=== PATIENT | female | born 1950 | race Caucasian/White ===

== ENCOUNTER 2021-05-13 08:08 | Emergency (ER) | payer OTHER, SELFPAY ==
--- NOTE | ~2021-05-13 | XR_ITS ---
EXAMINATION: XR chest 2V DATE: 05/13/2021 08:36 INDICATION: 3 days of cough TECHNIQUE: PA and lateral views of the chest were obtained. COMPARISON: Chest radiograph dated 06/23/2017 FINDINGS: Mild opacities at the lateral right lower lung base. Pericardial fat pads with adjacent curvilinear a telectasis/scarring in the right middle lobe or lingula best appreciated on the lateral projection wh ich also demonstrates a calcified nodule consistent with old granulomatous disease the posterior aspe ct of one of the lung bases. No pulmonary edema, pleural effusion or pneumothorax. The cardiomediasti nal silhouette is normal. Moderate thoracic spondylosis. IMPRESSION: 1. Mild opacities in the lateral right lower lung zone which could represent atelectasis or pneumonia . Reviewed, dictated and finalized at location A. [employer] IMPRESSION: 1. Mild opacities in the lateral right lower lung zone which could represent at electasis or pneumonia.
--- NOTE | 2021-05-13 08:17 | ED.URI ---
HPI - URI/Sore Throat General Chief Complaint: Upper Respiratory Infection Stated Complaint: congestion Time Seen by Provider: 05/13/21 08:17 Source: patient Mode of arrival: ambulatory Limitations: no limitations History of Present Illness HPI Narrative: Milagro Nair is a 70 yo female with a PMH of DM, HTN, high cholesterol, hypothyroid, COPD, who comes to who comes with a cough and clear mucus running on the back of her throat she says that she cannot sleep at night because of the coughing. No fever, no nausea vomiting diarrhea, her has treated for bacterial pneumonia for the last week is also here with increased congestion Related Data Home Medications Medication Instructions Recorded Confirmed albuterol sulfate INHALATION 05/13/21 05/13/21 atorvastatin 05/13/21 fluticasone propionate INTRANASAL 05/13/21 fluticasone propionate applic TOPICAL 05/13/21 furosemide 05/13/21 gabapentin 05/13/21 ibuprofen 05/13/21 levothyroxine 05/13/21 lisinopril-hydrochlorothiazide tablet 05/13/21 metformin mg PO 05/13/21 potassium chloride meq PO 05/13/21 Allergies Allergy/AdvReac Type Severity Reaction Status Date / Time Sulfa (Sulfonamide Allergy Unknown Unknown Verified 05/13/21 08:30 Antibiotics) Review of Systems Review of Systems: CONSTITUTIONAL: Denies fever, chills, sweats. EYES: Denies visual changes, redness, discharge. ENT:has rhinorrhea, has congestion, no sore throat, no otalgia. CARDIOVASCULAR: Denies chest pain, palpitations, edema. RESPIRATORY: Denies dyspnea, wheezing, deep cough GASTROINTESTINAL: Denies abdominal pain, nausea, vomiting, diarrhea. GENITOURINARY: Denies dysuria, hematuria, abnormal discharge SKIN: Denies rash or itching. NEUROLOGIC: Denies numbness, or focal weakness. PSYCHIATRIC: Denies anxiety or depression. [facility] Past Medical History Medical History COPD (chronic obstructive pulmonary disease) Diabetes High cholesterol HTN (hypertension) Hypothyroid Social History Social History (Updated 05/13/21 @ 08:30 by Isha Luque CNP) Smoking packs per day: 0.5 Smoking cigarettes per day: 10.0 Smoking status: Current every day smoker Alcohol intake: current Comments At time of signature, I agree with nursing past medical, surgical, social and family history. There is no relevant family history pertinent to the presenting complaint. Exam Narrative: GENERAL: This is a well-nourished, well-developed patient, in mild distress. HEAD: normocephalic, atraumatic. EYES: Sclera clear/white. Vision is grossly intact. EARS: External ears normal, auditory canals clear and without drainage, TMs normal without perforation. Hearing grossly intact. NOSE: External nose normal without nasal discharge, nares without redness, has rhinorrhea. THROAT: Mucous membranes moist, posterior pharynx erythematous with clear drainage NECK: Neck supple, non-tender CARDIOVASCULAR: Regular rate and rhythm without murmurs, gallops, or rubs. RESPIRATORY: Diminished to auscultation. Breath sounds equal bilaterally. No wheezes, rales, or rhonchi. Deep cough GASTROINTESTINAL: Abdomen soft, SKIN: warm, intact with no suspicious lesions or rash, good texture and turgor. NEURO: awake, alert, and oriented to person, place and time. There were no obvious focal neurologic abnormalities. Steady gait EXTREMITIES: Normal range of motion. BACK: Nontender without deformity Course Course Emergency Course: Patient here with deep cough and nasal congestion x3 days Chest x-ray mild opacities in the lateral right lung, marked cardiomediastinal silhouette, no pulmonary edema no pleural effusion or pneumothorax Started on prednisone, Tessalon Perles, zithromax Vital Signs Vital signs: Vital Signs Temperature 98.5 F 05/13/21 08:19 Pulse Rate 93 05/13/21 08:19 Respiratory Rate 18 05/13/21 08:19 Blood Pressure 129/97 H 05/13/21 08
[2021-05-13 08:19] VITALS: BP 129/97; PULSE 93; RESP 18; TEMP 36.9; O2SAT 97
[2021-05-13 08:32] VITALS: BP 129/97; PULSE 93; RESP 18; TEMP 36.9; O2SAT 97
== END 2021-05-13 10:05 | disposition home or self-care (01) ==
PROVIDERS: Emergency Provider Nurse Practitioner
DX: J18.9 Pneumonia, unspecified organism (principal); I10 Essential (primary) hypertension; E11.9 Type 2 diabetes mellitus without complications; E03.9 Hypothyroidism, unspecified; J44.9 Chronic obstructive pulmonary disease, unspecified; F17.210 Nicotine dependence, cigarettes, uncomplicated; Z79.84 Long term (current) use of oral hypoglycemic drugs
CPT/HCPCS: 71046; 99213; G0463

== ENCOUNTER 2024-04-27 17:35 | Emergency (ER) | payer OTHER, SELFPAY ==
[2024-04-27 17:53] VITALS: BP 93/60; PULSE 94; RESP 15; TEMP 36.7; O2SAT 94
--- NOTE | 2024-04-27 18:19 | ED.URI ---
HPI - URI/Sore Throat General Chief Complaint: Upper Respiratory Infection Stated Complaint: Cough/Sinus Time Seen by Provider: 04/27/24 18:19 Source: patient, RN notes reviewed and old records reviewed Mode of arrival: ambulatory Limitations: no limitations History of Present Illness HPI Narrative: 73-year-old female presents to the [facility] with cough congestion for 2 weeks. Denies fevers. Patient is currently a smoker. History of COPD. Had been using her albuterol inhaler twice daily. Related Data Home Medications Medication Instructions Recorded Confirmed albuterol sulfate 90 mcg/actuation inhalation 05/13/21 05/13/21 aerosol inhaler atorvastatin 10 mg tablet 05/13/21 fluticasone propionate 0.05 % applic topical 05/13/21 topical cream fluticasone propionate 50 intranasal 05/13/21 mcg/actuation nasal spray,suspension furosemide 20 mg tablet 05/13/21 gabapentin 300 mg capsule 05/13/21 ibuprofen 800 mg tablet 05/13/21 levothyroxine 75 mcg tablet 05/13/21 lisinopril 20 tablet 05/13/21 mg-hydrochlorothiazide 25 mg tablet metformin 500 mg tablet,extended mg PO 05/13/21 release 24 hr potassium chloride 10 mEq meq PO 05/13/21 tablet,extended release Allergies Allergy/AdvReac Type Severity Reaction Status Date / Time Sulfa (Sulfonamide Allergy Unknown Unknown Verified 04/27/24 17:50 Antibiotics) Review of Systems Review of Systems: All systems reviewed & are unremarkable except as noted in HPI and below Constitutional: Constitutional: Reports no additional constitutional complaints ENT: Reports system reviewed and no additional complaints, except as documented Cardiovascular: Cardiovascular: Reports no additional cardiovascular complaints, Denies chest pain and Denies dyspnea Respiratory: Respiratory: Reports as per HPI, Reports chest congestion, Reports cough and Denies dyspnea Gastrointestinal: Gastrointestinal: Reports no additional gastrointestinal complaints, Denies abdominal pain, Denies nausea and Denies vomiting Musculoskeletal: Musculoskeletal: Reports no additional musculoskeletal complaints Integumentary/Breasts: Skin/Breast: Reports system reviewed and no additional complaints, except as docu PMFSH Past Medical History Medical History COPD (chronic obstructive pulmonary disease) Diabetes High cholesterol HTN (hypertension) Hypothyroid Social History Social History Smoking packs per day: 0.5 Smoking cigarettes per day: 10.0 Smoking status: Current every day smoker Alcohol intake: current Comments At the time of my signature, I reviewed and agree with the nursing past medical, surgical, social, and family history. There is no relevant family history pertinent to the patient complaint. Exam Const: General: cooperative, healthy appearing, comfortable, no acute distress, well developed, alert and well nourished Nutritional Appearance: well nourished Orientation/consciousness: patient oriented x3 Limitations: no limitations HENMT: Head: normal to inspection Ears: hearing grossly normal bilaterally, external ears normal, TM's normal bilaterally, EAC's normal, mastoids normal and no periauricular adenopathy Face/Nose/Sinus: Normal external nose present, normal facial exam and face symmetric Face and sinus: normal facial exam and face symmetric Mouth: Yes Normal oral and palatal mucosa present, Yes lip normal and Yes tongue normal Throat: posterior oropharynx normal, tonsils normal and no uvular edema Eyes: General: appearance normal, both eyes and all related structures Alignment and Position: alignment normal Periorbital: periorbital findings normal Neck: Neck: normal visual inspection, full ROM, no lymphadenopathy and no meningeal signs Chest: Chest palpation & inspection: normal inspection of the chest Resp: Effort & Inspection: normal respiratory effort and able to speak in complete sentences Auscultation: no crackles, no rales, no rhonchi, no wheezes and diminished lung sounds bilateral Cardio: Rate: regular rate Skin: General skin exam: normal color and no rashes or lesions noted Lesions: no lesions Rashes: no rashes Wounds: no wounds Neuro: General: patient oriented x3, gait normal, tone normal, moves all extremities and no meningeal signs Cognition (Neuro): normal cognition Speech: normal speech Gait exam (Neuro): Normal gait present Extrem: General: normal to inspection, full ROM, capillary refill normal and normal gait Psych: Appearance: grossly normal and well kempt Mental Status: mental status grossly normal Speech and movement: Normal speech and movement present and Clear speech present Affect: normal affect Attitude: cooperative Course Course Level of Care: Express Care Visit Vital Signs Vital signs: Vital Signs Temperature 98.0 F 04/27/24 17:53 Pulse Rate 94 04/27/24 17:53 Respiratory Rate 15 04/27/24 17:53 Blood Pressure 93/60 L 04/27/24 17:53 Pulse Oximetry 94 04/27/24 17:53 Oxygen Delivery Room Air 04/27/24 17:53 Temperature 98.0 F 04/27/24 17:53 Pulse Rate 94 04/27/24 17:53 Respiratory Rate 15 04/27/24 17:53 Blood Pressure 93/60 L 04/27/24 17:53 Pulse Oximetry 94 04/27/24 17:53 Oxygen Delivery Room Air 04/27/24 17:53 Reviewed MDM - URI/Sore Throat MDM Narrative Medical decision making narrative: Patient sitting in exam room. Nontoxic, vitals stable. Patient in no acute distress Patient symptoms x2 weeks Patient most likely chronic bronchitis, COPD Patient appropriate for outpatient treatment and follow-up Discharge instructions reviewed with patient, as well as provided in writing per nursing staff. The instructions also include specific and strict return/GO TO THE ER as well as f/u information. All questions have been answered, and the patient deny any further questions with discharge and discharge plan. Some parts of this dictation were generated by voice recognition software and may contain typographical and/or grammatical inaccuracies. Differential Diagnosis Differential diagnosis: Likely upper respiratory infection, otitis media, sinusitis, viral infection and bronchitis Critical Care Time Critical Care Time Critical Care Time: No Discharge Plan Discharge Clinical Impression: Bronchitis, History of COPD Patient Disposition: Home, Self-Care Condition: Stable Instructions: Acute Bronchitis (ED), COPD (Chronic Obstructive Pulmonary Disease) (DC) Additional Instructions: Take antibiotics as prescribed Take steroid as prescribed Use the inhaler every 4-5 hours while awake. Be sure to use with a spacer. Follow-up with primary care provider For new or worsening symptoms go directly to the emergency room Patient Language: Syriac Prescriptions: New doxycycline monohydrate 100 mg tablet 100 mg PO BID Qty: 20 0RF prednisone 20 mg tablet See Rx Instructions .Route .COMPLEX Qty: 18 0RF Rx Instructions: Take 60 mg daily for 3 days, 40 mg daily for 3 days, 20 mg daily for 3 days No Action atorvastatin 10 mg tablet ibuprofen 800 mg tablet fluticasone propionate 0.05 % cream TOPICAL potassium chloride 10 mEq tablet extended release PO levothyroxine 75 mcg tablet gabapentin 300 mg capsule lisinopril-hydrochlorothiazide 20-25 mg tablet furosemide 20 mg tablet albuterol sulfate 90 mcg/actuation HFA aerosol inhaler INHALATION fluticasone propionate 50 mcg/actuation spray,suspension INTRANASAL metformin 500 mg tablet extended release 24 hr PO Follow-up/Referrals: PHYSICIAN,[employer] OPERATOR [Primary Care Provider] - Stand Alone Forms: Work/School Release IP Time of Disposition: 18:29
== END 2024-04-27 18:35 | disposition home or self-care (01) ==
PROVIDERS: Emergency Provider Nurse Practitioner
DX: J40 Bronchitis, not specified as acute or chronic (principal); J44.9 Chronic obstructive pulmonary disease, unspecified; E11.9 Type 2 diabetes mellitus without complications; E78.00 Pure hypercholesterolemia, unspecified; I10 Essential (primary) hypertension; E03.9 Hypothyroidism, unspecified; F17.210 Nicotine dependence, cigarettes, uncomplicated
CPT/HCPCS: 99213; G0463

== ENCOUNTER 2024-12-24 15:05 | Emergency (ER) | payer OTHER, SELFPAY ==
--- NOTE | 2024-12-24 15:07 | ED_ITS ---
HPI - Wound/Laceration General Chief Complaint: Skin/Abscess/Foreign Body Stated Complaint: Sore on right pinky finger that is not healing & s Time Seen by Provider: 12/24/24 15:05 Source: patient Mode of arrival: ambulatory Limitations: no limitations History of Present Illness HPI narrative: Patient is a 73-year-old female who presents with redness,rash appearing area to right pinky finger. Patient states this started 3 weeks ago when dog cut her finger with his paw. Patient has been using antibiotic ointment and Band-Aid since. Patient has completed 7 days of doxycycline with no change in appearance. States the cut itself has since healed. Denies any swelling, redness streaking up pain and pain. Related Data Home Medications ?Medication ?Instructions ?Recorded ?Confirmed ?Last Taken ?Type albuterol sulfate 90 mcg/actuation inhalation 05/13/21 05/13/21 Unknown History aerosol inhaler atorvastatin 10 mg tablet 05/13/21 Unknown History fluticasone propionate 0.05 % applic topical 05/13/21 Unknown History topical cream fluticasone propionate 50 intranasal 05/13/21 Unknown History mcg/actuation nasal spray,suspension furosemide 20 mg tablet 05/13/21 Unknown History gabapentin 300 mg capsule 05/13/21 Unknown History ibuprofen 800 mg tablet 05/13/21 Unknown History levothyroxine 75 mcg tablet 05/13/21 Unknown History lisinopril 20 tablet 05/13/21 Unknown History mg-hydrochlorothiazide 25 mg tablet metformin 500 mg tablet,extended mg PO 05/13/21 Unknown History release 24 hr potassium chloride 10 mEq meq PO 05/13/21 Unknown History tablet,extended release Allergies Allergy/AdvReac Type Severity Reaction Status Date / Time Sulfa (Sulfonamide Allergy Unknown Unknown Verified 12/24/24 15:15 Antibiotics) Review of Systems 2 Review of Systems: All systems reviewed & are unremarkable except as noted in HPI and below Constitutional: Constitutional: Denies body ache(s), Denies chills, Denies fatigue, Denies fever(s), Denies headache(s), Denies malaise and Denies weakness Eyes: Eyes: Denies blurry vision, Denies irritation and Denies loss of vision ENT: Denies otalgia, Denies headache(s), Denies nasal discharge, Denies sinus pain and Denies sore throat Cardiovascular: Cardiovascular: Denies chest pain, Denies irregular heart rhythm and Denies dyspnea Respiratory: Respiratory: Denies dyspnea Gastrointestinal: Gastrointestinal: Denies abdominal pain, Denies melena, Denies hematochezia, Denies diarrhea, Denies nausea and Denies vomiting Musculoskeletal: Musculoskeletal: Denies back pain, Denies myalgias and Denies arthralgias Integumentary/Breasts: Skin/Breast: Denies pruritus and Reports rash Neurologic: Denies headache(s), Denies loss of vision and Denies weakness Psychiatric: Psychiatric: Reports no additional psychiatric complaints Endocrine: Endocrine: Denies fatigue PMFSH Past Medical History Medical History Hypothyroid COPD (chronic obstructive pulmonary disease) High cholesterol Diabetes HTN (hypertension) Social History Social History Smoking packs per day: 0.5 Smoking cigarettes per day: 10.0 Smoking status: Current every day smoker Alcohol intake: current Comments At time of signature, agree with nursing past medical, surgical, social and family history. There is no relevant family history pertinent to the presenting complaint. Exam 2 Const: General: cooperative, healthy appearing, comfortable, no acute distress and well nourished Nutritional Appearance: well nourished O rientation/consciousness: patient oriented x3 Limitations: no limitations HENMT: Head: normal to inspection, normocephalic and atraumatic Ears: h earing grossly normal bilaterally and external ears normal Face/Nose/Sinus: N ormal external nose present, normal facial exam and face symmetric Face and sinus: normal facial exam and face symmetric Mouth: Yes lip normal Eyes: General: appearance normal, both eyes and all related structures A lignment and Position: alignment normal and position normal Periorbital: p eriorbital findings normal Eyelids: eyelids normal Pupils: Equal, round and reactive pupils present EOM: EOMs intact bilaterally Neck: Neck: normal visual inspection, full ROM and supple Chest: Chest palpation & inspection: normal inspection of the chest Resp: Effort & Inspection: normal respiratory effort and able to speak in complete sentences Auscultation: clear to auscultation bilaterally Cardio: Rate: regular rate Rhythm: regular rhythm Heart sounds: S1 normal heart sound present and S2 normal heart sound present GI: Inspection: normal to inspection Skin: General skin exam: normal color and no rashes or lesions noted Neuro: General: patient oriented x3 and moves all extremities Cranial nerves: Yes Equal, round and reactive pupils present Speech: normal speech Gait exam (Neuro): Normal gait present Extrem: General: normal to inspection, full ROM and no edema Hand/finger images: 1. Area of erythema with pinpoint pustules in between for thin digit. No induration, warmth or swelling Psych: Appearance: grossly normal and well kempt Mental Status: mental status grossly normal Speech and movement: Normal speech and movement present Affect: normal affect Attitude: cooperative Thought process: Normal thought process present Course Course Emergency Course: Patient is aware of diagnosis, understands and agrees to treatment plan. Anticipatory guidance given. Patient agrees to follow-up as directed and is aware of reasons to seek care at the emergency department. Portions of this record may have been created with voice recognition software Level of Care: Express Care Visit Vital Signs Vital signs: Reviewed MDM - Wound/Laceration MDM Narrative Medical decision making narrative: Instructed patient on discontinuing use of antibiotic ointment has a it is causing the irritation and breakdown of skin. Patient is keep area uncovered to dry out. Pt well hydrated appearing, in no respiratory distress, hemodynamically stable. Recommend supportive care. The patient is stable at time of discharge the clinical impression was discussed and the patient was given the opportunity to ask questions, which were addressed as completely as possible given the information available at present. Anticipatory guidance and return to care precautions were discussed and the importance of primary care follow-up was stressed and encouraged. The patient voiced understanding of the plan, indications to return, and the need for follow-up. Exam findings show no acute concerns or changes Patient is appropriate for outpatient treatment and follow-up. Differential Diagnosis Differential diagnosis: Likely abrasion and other (Dermatitis, cellulitis) Medical Records Attestation: I reviewed the patient's medical records. Discharge Plan Discharge Clinical Impression: Dermatitis Patient Disposition: Home Condition: Stable Instructions: Dermatitis (ED) Additional Instructions: Wash the area with gentle soap and water only. Use skin cream as prescribed to reduce irritation Keep area open to air as much as possible. He may cover while at work. Follow up with primary care provider or seek ER if you have redness streaking up hand Patient Language: British Prescriptions: New triamcinolone acetonide 0.1 % cream 1 applic topical TID 5 Days Qty: 80 0RF No Action atorvastatin 10 mg tablet ibuprofen 800 mg tablet fluticasone propionate 0.05 % cream TOPICAL potassium chloride 10 mEq tablet extended release PO levothyroxine 75 mcg tablet gabapentin 300 mg capsule lisinopril-hydrochlorothiazide 20-25 mg tablet furosemide 20 mg tablet albuterol sulfate 90 mcg/actuation HFA aerosol inhaler INHALATION fluticasone propionate 50 mcg/actuation spray,suspension INTRANASAL metformin 500 mg tablet extended release 24 hr PO doxycycline monohydrate 100 mg tablet 100 mg PO BID Qty: 20 0RF prednisone 20 mg tablet See Rx Instructions .Route .COMPLEX Qty: 18 0RF Rx Instructions: Take 60 mg daily for 3 days, 40 mg daily for 3 days, 20 mg daily for 3 days Follow-up/Referrals: PHYSICIAN NOT ON STAFF,NONSTAFF [Primary Care Provider] - Time of Disposition: 15:33
[2024-12-24 15:10] VITALS: BP 131/66; PULSE 96; RESP 20; TEMP 36.4; O2SAT 95
== END 2024-12-24 15:36 | disposition home or self-care (01) ==
PROVIDERS: Emergency Provider Nurse Practitioner Family
DX: L30.9 Dermatitis, unspecified (principal); E03.9 Hypothyroidism, unspecified; I10 Essential (primary) hypertension; E11.9 Type 2 diabetes mellitus without complications; J44.9 Chronic obstructive pulmonary disease, unspecified; F17.210 Nicotine dependence, cigarettes, uncomplicated
CPT/HCPCS: 99213; G0463